=== PATIENT | male | born 2000 | race Caucasian/White ===

== ENCOUNTER 2019-01-19 14:26 | Emergency (ER) | payer SELFPAY ==
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
== END 2019-01-19 15:50 | disposition home or self-care (01) ==
LOC: FB.ED 14:26
DX: S20.219A Contusion of unspecified front wall of thorax, initial encounter (principal); E86.0 Dehydration; R04.2 Hemoptysis; W50.0XXA Accidental hit or strike by another person, initial encounter; Y93.61 Activity, american tackle football
CPT/HCPCS: 36415; 71046; 80053; 81001; 84484; 85025; 93005; 99284-25